=== PATIENT | male | born 1985 | race Caucasian/White ===

== ENCOUNTER 2021-08-10 23:38 | Inpatient (IN) | payer OTHER ==
[~2021-08-10] VITALS: Ht 190.5 cm; Wt 122.5 kg
[~2021-08-10 23:38] MED LIST: CYCLOBENZAPRINE5 MG PO; KETOROLAC TROME10 MG PO
[2021-08-11] MEDS ORDERED: DOXYCYCLINE MO100 MG PO (03:36)
[2021-08-11] MEDS ORDERED: VENTOLIN HFA 66.7 GM INH (03:36)
[2021-08-11] MEDS ORDERED: DECADRON6 MG PO (03:36)
[2021-08-11] MEDS ORDERED: TESSALON PERLE100 MG PO (03:36)
[2021-08-11] MEDS ORDERED: LODINE CAP 300300 MG PO (03:36)
[2021-08-11 07:47] LABS: HEMOGLOBIN 14.8 gm/dl (14.0-17.5); RED BLOOD COUNT 5.16 M/UL (4.20-5.50); WHITE BLOOD COUNT 5.5 K/UL (4.5-11.0)
[2021-08-11 08:19] LABS: BUN/CREATININE RATIO 7 (0-10)
[2021-08-11] MEDS ORDERED: VITAMIN C500 M4 PO (13:08)
[2021-08-11] MEDS ORDERED: ZINC50 M3 PO (13:09)
[2021-08-11] MEDS ORDERED: MAGNESIUM400 M2 PO (13:09)
[2021-08-11] MEDS ORDERED: IBUPROFEN200 MG PO (13:09)
[2021-08-12 07:09] LABS: HEMOGLOBIN 14.7 gm/dl (14.0-17.5); RED BLOOD COUNT 5.15 M/UL (4.20-5.50)
[2021-08-12 07:15] LABS: WHITE BLOOD COUNT 7.3 K/UL (4.5-11.0)
[2021-08-12 07:35] LABS: BUN/CREATININE RATIO 11 (0-10)
[2021-08-13 07:01] LABS: RED BLOOD COUNT 4.95 M/UL (4.20-5.50); WHITE BLOOD COUNT 8.3 K/UL (4.5-11.0)
[2021-08-13 07:27] LABS: BUN/CREATININE RATIO 13 (0-10)
== END 2021-08-13 14:28 | disposition home or self-care (01) | DRG 177 ==
LOC: ER1 23:38 → M/S 08-11 05:20 → CDU 08-11 05:20 → M/S 08-11 20:36
PROVIDERS: Internal Medicine; ADMIT Internal Medicine
PROC: 3E0333Z Introduction of Anti-inflammatory into Peripheral Vein, Percutaneous Approach (ICD-10-PCS; principal; 2021-08-11)
PROC: XW033E5 Introduction of Remdesivir Anti-infective into Peripheral Vein, Percutaneous Approach, New Technology Group 5 (ICD-10-PCS; 2021-08-11)
PROC: 8E0ZXY6 Isolation (ICD-10-PCS; 2021-08-11)
DX: U07.1 COVID-19 (principal); J96.01 Acute respiratory failure with hypoxia; J12.82 Pneumonia due to coronavirus disease 2019
CPT/HCPCS: 36415; 36600; 71046; 80048; 80053; 82803; 83615; 85025; 86140; 96374; 99285; J0456; J1100; J1650; J7030; M0243; U0002

== ENCOUNTER 2022-01-22 18:27 | Emergency (ER) | payer OTHER ==
[~2022-01-22 18:27] MED LIST changes: +DECADRON6 MG PO; +DOXYCYCLINE MO100 MG PO; +IBUPROFEN200 MG PO; +LODINE CAP 300300 MG PO; +MAGNESIUM400 M2 PO; +TESSALON PERLE100 MG PO; +VENTOLIN HFA 66.7 GM INH; +VITAMIN C500 M4 PO; +ZINC50 M3 PO
[2022-01-22 20:04] LABS: RED BLOOD COUNT 5.32 M/UL (4.20-5.50); WHITE BLOOD COUNT 11.4 K/UL (4.5-11.0)
[2022-01-22 20:28] LABS: BUN/CREATININE RATIO 8 (0-10)
== END 2022-01-22 21:05 | disposition home or self-care (01) ==
LOC: ER1 18:27
PROVIDERS: Family Medicine
DX: U07.1 COVID-19 (principal)
CPT/HCPCS: 0240U; 71045; 80053; 83615; 85025; 85652; 86140; 99283

== ENCOUNTER → 2022-01-24 | Outpatient (CLI) | payer OTHER ==
[~2022-01-24] VITALS: Ht 188 cm; Wt 127.0 kg
== END ==
LOC: EROP 11:53
DX: U07.1 COVID-19 (principal); J12.82 Pneumonia due to coronavirus disease 2019; Z23 Encounter for immunization
CPT/HCPCS: M0247; Q0247

== ENCOUNTER → 2022-06-18 | Outpatient (CLI) | payer OTHER | LOC: KOH-I 14:59 | DX: M79.601 Pain in right arm (principal); S52.91XA Unspecified fracture of right forearm, initial encounter for closed fracture; W01.10XA Fall on same level from slipping, tripping and stumbling with subsequent striking against unspecified object, initial encounter | CPT/HCPCS: 73060; 73080; 73090; 73110 ==